=== PATIENT | female | born 1960 | race Two or more races ===

== ENCOUNTER 2024-08-11 03:20 | Emergency (ER) | payer BC ==
[~2024-08-11] VITALS: Ht 165.1 cm; Wt 70.3 kg
[2024-08-11] MEDS ORDERED: LINZESS145 MCG PO (03:45)
[2024-08-11] MEDS ORDERED: CEFTRIAXONE SODIUM 1,000 MG VIAL IM STA (04:23)
[2024-08-11] MEDS ORDERED: CEFTRIAXONE SODIUM 1,000 MG VIAL ONE (04:26)
[2024-08-11 04:47] LABS: BASO % 0.4 % (0.1-1.2); EOS # 0.09 (0.04-0.54); EOS % 0.8 % (0.7-7.0); HEMATOCRIT 38.7 % (34.1-44.9); HEMOGLOBIN 13.5 g/dL (11.2-15.7); LYMPH # 1.13 (1.18-3.74); LYMPH % 10.3 % (19.3-53.1); MEAN CORPUSCULAR HEMOGLOBIN 28.9 pg (25.6-32.2); MONO # 0.64 (0.24-0.82); MONO % 5.8 % (4.7-12.5); NEUT # 9.05 (1.56-6.13); NEUT % 82.5 % (34.0-71.1); PLATELET COUNT 285 K/uL (163-369); RED BLOOD COUNT 4.67 M/uL (3.93-5.22); RED CELL DISTRIBUTION WIDTH 12.8 % (11.6-14.4)
[2024-08-11 06:53] LABS: PH,URINE 6.5 (5.0-8.0); URINE APPEARANCE Clear; URINE BILIRRUBIN Negative (NEGATIVE); URINE BLOOD Large; URINE COLOR Yellow; URINE GLUCOSE Negative (NEGATIVE); URINE KETONE Negative (NEGATIVE); URINE LEUKOCYTE Large; URINE NITRATE Negative; URINE PROTEIN Negative (NEGATIVE); URINE UROBILINOGEN 0.2 E.U./dl
[2024-08-11 06:58] LABS: URINE EPITHELIAL CELLS 8.7 uL (0.0-38.8); URINE RBC 8.8 uL (0.0-20.8); URINE WBC 915.5 uL (0.0-23.2)
[2024-08-11] MEDS ORDERED: CEPHALEXIN500 MG PO (07:42)
[2024-08-11] MEDS ORDERED: PYRIDIUM DS200 MG PO (07:42)
== END 2024-08-11 08:30 ==
LOC: ER 03:54
PROVIDERS: General Practice
DX: N39.0 Urinary tract infection, site not specified (principal); Z88.1 Allergy status to other antibiotic agents